=== PATIENT | female | born 1965 | race African-American/Black ===

== ENCOUNTER 2019-03-28 14:30 | Emergency (ER) | payer MEDICAID ==
[~2019-03-28 14:30] MED LIST: IBUP-2030 MT
== END 2019-03-28 15:55 | disposition left against medical advice (07) ==
LOC: ER 14:30
DX: M54.2 Cervicalgia (principal); Z53.21 Procedure and treatment not carried out due to patient leaving prior to being seen by health care provider

== ENCOUNTER 2020-05-19 12:59 | Emergency (ER) | payer MEDICAID ==
[~2020-05-19] VITALS: Ht 167.6 cm; Wt 71.0 kg
[2020-05-19] MEDS ORDERED: CEFTRIAXONE SODIUM 1 G/VIAL IM ONE (13:45)
[2020-05-19] MEDS ORDERED: LIDOCAINE HCL 1% 20ML VIAL (Pyxis) INJ INFIL ONE (13:45)
[2020-05-19] MEDS ORDERED: IBUPROFEN 600MG TABLET PO ONE (13:45)
[2020-05-19 14:28] VITALS: BP 132/86
== END 2020-05-19 14:30 | disposition home or self-care (01) ==
LOC: ER 12:59
DX: K04.7 Periapical abscess without sinus (principal); K11.20 Sialoadenitis, unspecified
CPT/HCPCS: 96372; 99283; J0696; J3490